=== PATIENT | male | born 1955 | race Caucasian/White ===

== ENCOUNTER 2020-12-06 19:29 | Emergency (ER) | payer BC ==
[2020-12-06] MEDS: Tetracaine HCl/PF 0.5% 4 ML Bottle EYEBOTH ONE (21:32)
--- NOTE | 2020-12-06 22:23 | EDM.PDOC ---
ED HPI GENERAL MEDICAL PROBLEM - General Chief Complaint: Eye Problems Stated Complaint: POSSIBLE EYE INFECTION Time Seen by Provider: 12/06/20 20:04 Source of Information: Reports: Patient, RN Notes Reviewed - History of Present Illness INITIAL COMMENTS - FREE TEXT/NARRATIVE: HISTORY AND PHYSICAL: History of present illness: Patient is a 65-year-old male who presents to the ED today with concern of right eye infection that has been ongoing since today. Patient states that he woke up with his eye matted shut. Patient states that he has had frequent bacterial conjunctivitis out of his right eye and states that he once had a prior ulceration but this feels more similar to bacterial conjunctivitis according to patient. Patient states that he follows with an eye provider back home in [place] and states that he is up here for a job for the next couple days. Patient states that he does wear contacts but has not been wearing them recently and states that he has been wearing his glasses as this is easier when he is working. Patient denies any trauma or injury to the eye or any other symptoms or concerns. Patient states that he feels as if his visual acuity is slightly decreased in the eye but states that he feels that is it is due to the discharge from his eye rather than actual decreased vision and states that he has a hard time keeping the eye open due to the drainage. Patient denies fever, chills, chest pain, shortness of breath, or cough. Denies headache, neck stiff ness, change in vision, syncope, or near syncope. Denies nausea, vomiting, abdominal pain, diarrhea, constipation, or dysuria. Has not noted any blood in urine or stool. Patient has been eating and drinking appropriately. Review of systems: As per history of present illness and below otherwise all systems reviewed and negative. Past medical history: As per history of present illness and as reviewed below otherwise noncontributory. Surgical history: As per history of present illness and as reviewed below otherwise noncontributory. Social history: See social history for further information Family history: As per history of present illness and as reviewed below otherwise noncontributory. Physical exam: General: Patient is alert, oriented, and in no acute distress. Patient sitting comfortably on exam table. HEENT: Visual acuity intact with slightly decreased in the right eye. Patient right eye is matted shut by with mucopurulent discharge. This was cleared from the eye and the conjunctiva is erythematous consistent with conjunctivitis. EOMS intact without pain or difficulty. Fluroscene stain performed without evidence of corneal abrasion/ulceration. Bilateral upper and lower lids everted without sign of foreign body. Negative for corneal opacity, hyphema, or hypopyon. Otherwise, Atraumatic, normocephalic, pupils equal and reactive bilaterally, negative for conjunctival pallor or scleral icterus, mucous membranes moist, TMs normal bilaterally, throat clear, neck supple, nontender, trachea midline. No drooling or trismus noted. No meningeal signs. No hot potato voice noted. Lungs: Clear to auscultation, breath sounds equal bilaterally, chest nontender. Heart: S1S2, regular rate and rhythm without overt murmur Abdomen: Soft, nondistended, nontender. Negative for masses or hepatosplenomegaly. Negative for costovertebral tenderness. Pelvis: Stable nontender. Genitourinary: Deferred. Rectal: Deferred. Skin: Intact, warm, dry. No lesions or rashes noted. Extremities: Atraumatic, negative for cords or calf pain. Neurovascular unremarkable. Neuro: Awake, alert, oriented. Cranial nerves II through XII unremarkable. Cerebellum unremarkable. Motor and sensory unremarkable throughout. Exam nonfocal. Notes: Dr. Guy verbally involved in patient care. Strict return precautions thoroughly discussed with patient. Discussed importance for follow-up with the film developer and primary care provider.. Voices understanding and is agreeable to plan of care. Denies any further questions or concerns at this time. Diagnostics: Fluorescein Wood's lamp stain Therapeutics: Tetracaine ophthalmic Prescription: Erythromycin ophthalmic Impression: Bacterial conjunctivitis, right Plan: 1. Apply medication to affected eye as directed and as discussed. Do not wear your contacts until you have been cleared by the film developer as discussed. 2. You can alternate ibuprofen and Tylenol as directed for pain and discomfort. 3. Follow-up with the film developer as discussed. Call the clinic in the morning to establish an appointment time. Return to the ED as needed and as discussed. Definitive disposition and diagnosis as appropriate pending reevaluation and review of above. Right Eye Pain Score (Numeric/FACES): 8 - Related Data Allergies Allergy/AdvReac Type Severity Reaction Status Date / Time No Known Allergies Allergy Verified 12/06/20 20:36 Home Meds: Home Meds Celecoxib [CeleBREX] 200 mg PO DAILY 12/06/20 [History] Metoprolol Succinate [Toprol XL] 25 mg PO BID 12/06/20 [History] Pregabalin [Lyrica] 75 mg PO TID 12/06/20 [History] Past Medical History Cardiovascular History: Reports: Hypertension - Infectious Disease History Infectious Disease History: Reports: Hepatitis C Social & Family History - Family History Family Medical History: No Pertinent Family History - Tobacco Use Tobacco Use Status *Q: Never Tobacco User - Caffeine Use Caffeine Use: Reports: None - Recreational Drug Use Recreational Drug Use: No ED ROS GENERAL - Review of Systems Review Of Systems: Comprehensive ROS is negative, except as noted in HPI. ED EXAM GENERAL W FULL EYE - Physical Exam Exam: See Below (see dictation) Course - Vital Signs Last Recorded V/S: Last Vital Signs Temp 96.3 F L 12/06/20 19:59 Pulse 84 12/06/20 19:59 Resp 20 12/06/20 19:59 BP 135/62 12/06/20 19:59 Pulse Ox 94 L 12/06/20 19:59 - Orders/Labs/Meds Orders: Active Orders 24 hr Category Date Time Status Communication Order [RC] STAT Care 12/06/20 21:18 Active Meds: Medications Discontinued Medications Generic Name Dose Route Start Last Admin Trade Name Sveta PRN Reason Stop Dose Admin Tetracaine HCl 2 ml 12/06/20 21:16 12/06/20 21:32 Tetracaine Hcl/Pf 0.5% 4 Ml Bottle EYEBOTH 12/06/20 21:17 2 drop ASDIRECTED ONE Administration Departure - Departure Time of Disposition: 22:22 Disposition: Home, Self-Care 01 Clinical Impression: Bacterial conjunctivitis of right eye - Discharge Information Instructions: Bacterial Conjunctivitis, Adult, [id number] Referrals: PCP,Not In Area [Primary Care Provider] - Forms: ED Department Discharge Additional Instructions: The following information is given to patients seen in the emergency department who are being discharged to home. This information is to outline your options for follow-up care. We provide all patients seen in our emergency department with a follow-up referral. The need for follow-up, as well as the timing and circumstances, are variable depending upon the specifics of your emergency department visit. If you don't have a primary care physician on staff, we will provide you with a referral. We always advise you to contact your personal physician following an emergency department visit to inform them of the circumstance of the visit and for follow-up with them and/or the need for any referrals to a consulting specialist. The emergency department will also refer you to a specialist when appropriate. This referral assures that you have the opportunity for follow-up care with a specialist. All of these measure are taken in an effort to provide you with optimal care, which includes your follow-up. Under all circumstances we always encourage you to contact your private physician who remains a resource for coordinating your care. When calling for follow-up care, please make the office aware that this follow-up is from your recent emergency room visit. If for any reason you are refused follow-up, please contact the [facility] Emergency Department at and asked to speak to the emergency department charge nurse. [facility], Ophthalmology [address] [place] [address] 1. Apply medication to affected eye as directed and as discussed. Do not wear your contacts until you have been cleared by the film developer as discussed. 2. You can alternate ibuprofen and Tylenol as directed for pain and discomfort. 3. Follow-up with the film developer as discussed. Call the clinic in the morning to establish an appointment time. Return to the ED as needed and as discussed. Sepsis Event Note (ED) - Evaluation Sepsis Screening Result: No Definite Risk - Focused Exam Vital Signs: Vital Signs Temp Pulse Resp BP Pulse Ox 12/06/20 19:59 96.3 F L 84 20 135/62 94 L - My Orders Last 24 Hours: My Active Orders 12/06/20 21:18 Communication Order [RC] STAT - Assessment/Plan Last 24 Hours: My Active Orders 12/06/20 21:18 Communication Order [RC] STAT
== END 2020-12-06 22:33 | disposition home or self-care (01) ==
LOC: MW.ED 19:29
DX: H10.021 Other mucopurulent conjunctivitis, right eye (principal); I10 Essential (primary) hypertension; Z79.899 Other long term (current) drug therapy
CPT/HCPCS: 99283